=== PATIENT | male | born 1945 | race African-American/Black ===

== ENCOUNTER 2020-07-25 00:52 | Emergency (ER) | payer MEDICARE ==
[2020-07-25 02:00] LABS: Hemoglobin 17.1 g/dL (14.0-18.0); Mean Corpuscular HGB CONC 29.7 g/dL (32.0-36.0); Mean Corpuscular Hemoglobin 25.7 pg (27.0-31.0); Mean Corpuscular Volume 86.8 fL (78.0-98.0); Mean Platelet Volume 9.3 fL (7.4-10.4); Platelet Count 112 thou/uL (130-400); RBC Distribution Width 15.5 % (11.5-14.5); Red Blood Cell (RBC) Count 6.63 mill/uL (4.70-6.10); White Blood Cell (WBC) Count 4.8 thou/uL (4.8-10.8)
[2020-07-25 02:07] LABS: #Lymphocytes 0.7 thou/uL (1.20-3.40); #Monocytes 0.1 thou/uL (0.11-0.59); %Basophils 0.6 % (0.0-1.0); %Eosinophils 0.6 % (0.0-10.0); %Lymphocytes 14.4 % (21.0-51.0); %Monocytes 2.3 % (0.0-10.0); %Neutrophils 82.1 % (42.0-75.0); Lymphocytes 19 % (21-51); MDiff Complete? YES; Monocytes 3 % (0-10); Neutrophil 78 % (42-75); Platelet Morphology Comment Appears Decreased; RBC Morphology Normal
[2020-07-25 02:10] LABS: Bilirubin Negative (Negative); Blood, Urine Large (Negative); Clarity Cloudy (Clear); Glucose, Urine (Dipstick) >=1000 mg/dL (Negative); Ketone, Urine Negative (Negative); Leukocyte Small (Negative); Nitrite Positive (Negative); Protein, Urine (Dipstick) 100 mg/dL (Neg-Trace); pH, Urine 5.5 (5.0-9.0)
[2020-07-25 02:16] LABS: RBC/HPF 21-50 HPF (0-3); WBC/HPF Greater than 50 HPF (0-3)
[2020-07-25 02:17] LABS: Bacteria/HPF 3+ HPF (None Seen)
[2020-07-25 02:23] LABS: ALT (SGPT) 52 U/L (8-55); AST (SGOT) 41 U/L (5-34); Albumin 4.2 g/dL (3.4-4.8); Alkaline Phosphatase 134 U/L (40-110); Anion Gap 17 mmol/L (10-20); BUN (Urea Nitrogen) 17 mg/dL (8.4-25.7); Bilirubin, Total 1.5 mg/dL (0.2-1.2); Calc. Creatinine Clearance 0 mL/min (70-130); Carbon Dioxide 25 mmol/L (23-31); Chloride 103 mmol/L (98-107); Globulin 2.8 g/dL (2.4-3.5); Glucose 142 mg/dL (83-110); Lipase 32 U/L (8-78); Potassium 4.1 mmol/L (3.5-5.1); Sodium 141 mmol/L (136-145)
[2020-07-25] MEDS ORDERED: Sodium Chloride 0.9% 100 ML ONE (02:27)
[2020-07-25] MEDS ORDERED: Acetaminophen 325 MG TAB ONE (02:27)
[2020-07-25] MEDS ORDERED: Sodium Chloride 0.9% 1,000 ML ONE ×2 (02:27→03:08)
[2020-07-25] MEDS ORDERED: cefTRIAXone\\ROCEPHIN 2 GM VIAL ONE (02:27)
[2020-07-25] MEDS ORDERED: Sodium Chloride 0.9% 250 ML 500 ML ONE (02:46)
[2020-07-25] MEDS ORDERED: Sodium Chloride 0.9% 500 ML ONE (03:08)
[2020-07-25] MEDS ORDERED: metroNIDAZOLE 500 MG/100 ML BAG ONE (03:13)
[2020-07-25 05:16] LABS: Lactic Acid 1.3 mmol/L (0.5-2.2)
[2020-07-25] MEDS ORDERED: Ibuprofen 600 MG TAB ONE (05:26)
--- NOTE | 2020-07-25 08:00 | RAD ---
RADIOGRAPH CHEST 2 VIEWS: DATE: 07/25/2020 HISTORY: 75-year-old male with fever FINDINGS: There is no airspace density, pulmonary edema, pleural effusion, pneumothorax, or cardiomegaly. IMPRESSION: No acute cardiopulmonary findings.
--- NOTE | 2020-07-25 09:12 | CT ---
PRELIMINARY REPORT/[facility]/EMERGENCY AFTER HOURS PROCEDURE: EXAM: CT Abdomen and Pelvis with Intravenous Contrast CLINICAL HISTORY: LEFT SIDE PAIN TECHNIQUE: Axial computed tomography images of the abdomen and pelvis with intravenous contrast. CONTRAST: With; 90 ml ISOVUE [id number] COMPARISON: None provided. FINDINGS: LUNG BASES: No basilar airspace consolidation or pleural effusion. LIVER: Unremarkable. GALLBLADDER AND BILE DUCTS: Unremarkable. No calcified stone. No ductal dilation. PANCREAS: Unremarkable. SPLEEN: Unremarkable. ADRENAL GLANDS: Unremarkable. KIDNEYS, URETERS, AND BLADDER: Both kidneys have a normal size. No hydronephrosis. No renal calculi. There is a subcentimeter lef t renal cortical cyst.. STOMACH AND BOWEL: Stomach is normal. There are multiple loops of dilated fluid and gas-filled small bowel in the midab domen. An enteritis is suspected. There is moderate fecal debris within the colon. Minimal bowel w all thickening with diverticula in the distal descending colon consistent with diverticulitis. No c omplication.. APPENDIX: No CT evidence for appendicitis. PERITONEUM: No free fluid. No free air. LYMPH NODES: No lymphadenopathy. REPRODUCTIVE: Unremarkable as visualized. VASCULATURE: No aortic aneurysm. BONES: No fracture or suspicious osseous abnormality. ABDOMINAL WALL AND SOFT TISSUES: Unremarkable. IMPRESSION: There are multiple slightly dilated fluid and gas filled loops of small bowel in the mid and lower ab domen, enteritis is suspected. No obstruction is seen. Mild diverticulitis of the distal descending colon without complication.. ELECTRONICALLY SIGNED BY: Alana Garcia DO Jul 25, 2020 3:03:21 AM [employer] REPRESENTATIVE This report is intended for review by the ordering physician only, in accordance of law. If you recei ve this report in error, please call [facility] at [phone]. FINAL REPORT EMERGENCY AFTER HOURS CT ABDOMEN AND PELVIS WITH IV CONTRAST: I am in agreement with the preliminary report issued by [facility]. POS: [facility]
[2020-07-25] MEDS ORDERED: Iopamidol 370 76% 100 ML VIAL ONE (10:25)
== END 2020-07-25 06:50 | disposition short-term general hospital (02) ==
LOC: MADERS 00:52
DX: A41.9 Sepsis, unspecified organism (principal); R65.20 Severe sepsis without septic shock; K57.32 Diverticulitis of large intestine without perforation or abscess without bleeding; E11.9 Type 2 diabetes mellitus without complications; E05.90 Thyrotoxicosis, unspecified without thyrotoxic crisis or storm; Z79.82 Long term (current) use of aspirin; Z79.899 Other long term (current) drug therapy
CPT/HCPCS: 36415; 71046; 74177; 80053; 81003; 81015; 83605; 83690; 84484; 85025; 87040; 87077; 87086; 87149; 87186; 93005; 94760; J0696; J3370; J3490; J7030; J7050; Q9967